=== PATIENT | male | born 1960 | race Two or more races ===

== ENCOUNTER 2025-05-17 06:32 | Day surgery (SDC) | payer OTHER ==
[2025-05-10 09:33] LABS: BASO % 0.3 % (0.1-1.2); EOS # 0.03 (0.04-0.54); EOS % 0.5 % (0.7-7.0); LYMPH # 1.69 (1.18-3.74); LYMPH % 28.7 % (19.3-53.1); MEAN PLATELET VOLUME 10.50 fl (9.4-12.4); MONO # 0.49 (0.24-0.82); MONO % 8.3 % (4.7-12.5); NEUT # 3.64 (1.56-6.13); NEUT % 62.0 % (34.0-71.1); RED CELL DISTRIBUTION WIDTH 12.9 % (11.6-14.4)
[2025-05-10 09:42] LABS: URINE APPEARANCE Clear; URINE BILIRRUBIN Negative (NEGATIVE); URINE BLOOD Negative; URINE COLOR Yellow; URINE GLUCOSE Negative (NEGATIVE); URINE KETONE Negative (NEGATIVE); URINE LEUKOCYTE Negative; URINE NITRATE Negative; URINE PROTEIN Negative (NEGATIVE); URINE UROBILINOGEN 0.2 E.U./dl
[2025-05-10 09:45] LABS: URINE BACTERIA 4.7 uL (0.0-1933); URINE RBC 3.0 uL (0.0-20.8); URINE WBC 7.9 uL (0.0-23.2)
[2025-05-10 09:46] VITALS: BP 146/91
[2025-05-10 09:54] LABS: URINE CAST 0.00 uL (0.0-1.40); URINE EPITHELIAL CELLS 1.2 uL (0.0-38.8)
[2025-05-10 09:57] LABS: INR 1.03
[2025-05-10 10:35] LABS: ALT/SGPT 30.0 U/L (12-78); AST/SGOT 16.0 U/L (15-37); BILIRUBIN TOTAL 0.87 mg/dL (0.3-1.2); BUN CREA RATIO 18.0 (7.0-25.0); CREATININE SERUM 0.93 mg/dL (0.70-1.30); GFR 82.06; GLOBULINA 3.4 G/DL (2.4-3.5); GLUCOSE FASTING 107.0 mg/dL (65-100); OSMOLALITY SERUM 287.0 MOSM/KG (275-295)
[~2025-05-17] VITALS: Ht 185.4 cm; Wt 95.3 kg
[~2025-05-17 06:32] MED LIST: LOSARTAN POTASS50 MG PO; METFORMIN HCL500 M3 PO; PRAVASTATIN SOD40 MG PO; TOPROL XL50 M1 PO
[2025-05-17] MEDS ORDERED: CEFAZOLIN SODIUM 1,000 MG VIAL ONE (07:58)
[2025-05-17] MEDS ORDERED: CEFAZOLIN SODIUM 1,000 MG VIAL IV ONE (10:45)
[2025-05-17] MEDS ORDERED: KETOROLAC TROMETHAMINE 30 MG VIAL IM ONE (10:45)
[2025-05-17] MEDS ORDERED: KETOROLAC TROMETHAMINE 30 MG VIAL IV ONE (10:45)
[2025-05-17] MEDS ORDERED: LIDOCAINE HCL 1%/EPINEPHRINE 20ML VIAL IJ ONE (10:45)
[2025-05-17] MEDS ORDERED: BUPIVACAINE HCL 30 ML VIAL IJ ONE (10:45)
[2025-05-17] MEDS ORDERED: MORPHINE SULFATE 4 MG/ML VIAL IV ONE ×2 (13:00→14:00)
== END 2025-05-17 14:30 | disposition home or self-care (01) ==
LOC: CIR.AMB 06:32
PROVIDERS: ATTEND Orthopaedic Surgery
DX: M75.112 Incomplete rotator cuff tear or rupture of left shoulder, not specified as traumatic (principal); M75.42 Impingement syndrome of left shoulder